=== PATIENT | female | born 1995 | race Caucasian/White ===

== ENCOUNTER 2021-10-24 11:24 | Outpatient (CLI) | payer OTHER, SELFPAY ==
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
== END 2021-10-24 11:25 | disposition home or self-care (01) ==
LOC: CHSIMG 11:28
PROVIDERS: PCP Family Medicine; Visit Provider Family Medicine
DX: M79.672 Pain in left foot (principal)
CPT/HCPCS: 73630

== ENCOUNTER 2022-03-11 19:09 | Emergency (ER) | payer OTHER, SELFPAY ==
--- NOTE | 2022-03-11 19:35 | ED.GENADULT ---
HPI - General Adult General Chief complaint: Unspecified Stated complaint: hands are turning blue Time Seen by Provider: 03/11/22 19:14 Source: patient and family Mode of arrival: ambulatory History of Present Illness HPI narrative: Phys a 26-year-old female that has a distal fingertips and hands that are cyanotic and blue was taking a bath earlier today and had her hands and water and while outdoors fingers would turn cyanotic and blue has good radial pulse with no shortness of breath no fever or chills no nausea vomiting no abdominal pain the only medical history is ADD that she takes Adderall for. There was no known injury has good range of motion all her extremities with no numbness or tingling. Onset (ago): day(s) Location: upper extremity ( Blue hands cold with no pain) Radiation: non-radiation Severity: mild Related Data Home Medications Medication Instructions Recorded Confirmed albuterol sulfate 90 mcg/actuation See Rx Instructions .Route 03/11/22 03/11/22 aerosol inhaler .COMPLEX PRN Shortness Of Breath budesonide-formoterol HFA 160 See Rx Instructions .Route 03/11/22 03/11/22 mcg-4.5 mcg/actuation aerosol .COMPLEX PRN Shortness Of Breath inhaler (Symbicort) dextroamphetamine-amphetamine 5 mg 5 mg PO DAILY 03/11/22 03/11/22 tablet fluticasone propionate 50 1 spray intranasal DAILY PRN Dry 03/11/22 03/11/22 mcg/actuation nasal Nasal Passages spray,suspension Allergies Allergy/AdvReac Type Severity Reaction Status Date / Time oseltamivir [From Tamiflu] Allergy Hives Verified 03/11/22 19:40 Review of Systems Review of Systems: All systems reviewed & are unremarkable except as noted in HPI and below Eyes: Eyes: Reports as per HPI ENT: Reports system reviewed and no additional complaints, except as documented PMFSH Past Medical History Medical History ADD (attention deficit disorder) Exam Const: General: cooperative, healthy appearing and comfortable HENMT: Head: normal to inspection Ears: hearing grossly normal bilaterally Mouth: Yes Normal oral and palatal mucosa present, Yes lip normal and Yes tongue normal Eyes: General: appearance normal, both eyes and all related structures Visual Street: normal visual street by confrontation Alignment and Position: alignment normal Neck: Neck: normal visual inspection, full ROM, no lymphadenopathy and no meningeal signs Chest: Chest palpation & inspection: normal inspection of the chest and normal palpation of entire chest wall Resp: Effort & Inspection: normal respiratory effort Auscultation: clear to auscultation bilaterally Cardio: Jugular venous distension: no JVD Palpation: normal PMI Rate: regular rate Rhythm: regular rhythm GI: Inspection: normal to inspection Skin: Other: peripheral cyanosis with blue fingertips and palms Neuro: General: oriented to person, oriented to place and oriented to time Extrem: General: normal to inspection and full ROM Right lower extremity: normal capillary refill and cyanosis Psych: Appearance: grossly normal and well kempt Mental Status: mental status grossly normal Course Course Emergency Course: patient received a dose of amlodipine 5mg to help with some vasodilation. The patient has been having blue hands a cold to touch but has minimal pain and discomfort. Critical Care Time Critical Care Time Critical Care Time: No Discharge Plan Discharge Clinical Impression: Raynaud phenomenon Qualifiers: Raynaud?s-associated gangrene presence: without gangrene Qualified Code(s): I73.00 - Raynaud's syndrome without gangrene Patient Disposition: Home, Self-Care Condition: Stable Instructions: Antibiotic Form, Raynaud Disease (ED) Additional Instructions: advised take medicine as prescribed and follow-up with primary care physician within 1 week for further evaluation and treatment. Prescriptions: New amlodipine 2.5
[2022-03-11] MEDS: amLODIPine BESYLATE 5 MG TABLET PO (19:46)
[2022-03-11 19:49] VITALS: PULSE 78; RESP 18; TEMP 36.3; O2SAT 100
[2022-03-11 20:31] VITALS: BP 114/62; PULSE 76
[2022-03-11 20:49] VITALS: BP 114/62; PULSE 76; RESP 18; TEMP 35.9; O2SAT 100
== END 2022-03-11 20:40 | disposition home or self-care (01) ==
PROVIDERS: Emergency Provider Emergency Medicine; PCP Family Medicine
DX: I73.00 Raynaud's syndrome without gangrene (principal)
CPT/HCPCS: 99283; A9270

== ENCOUNTER 2023-11-26 13:46 | Outpatient (CLI) | payer OTHER, SELFPAY ==
[2023-11-26 14:00] VITALS: BP 112/59; PULSE 96; RESP 18; TEMP 36.2; O2SAT 100; BMI 25.0
[2023-11-26] MEDS: IRON SUCROSE COMPLEX 300 MG in SODIUM CHLORIDE 0.9% IV 250 ML 125 MG IVPB (14:05)
[2023-11-26 16:10] VITALS: BP 91/68; PULSE 62; RESP 16; TEMP 36.5; O2SAT 100
--- NOTE | 2023-11-26 16:39 | PC.NURSE ---
Patient offered no c/o. Denies weakness after infusion. IV line d/c'd intact and pressure applied for 2 minutes. Dressing applied to site and site care instructions given. Patient states understanding. Able to ambulate with significant other to car.
== END 2023-11-26 13:47 | disposition home or self-care (01) ==
PROVIDERS: PCP Family Medicine; Visit Provider Internal Medicine Hematology & Oncology
DX: E61.1 Iron deficiency (principal)
CPT/HCPCS: 96365; 96366; J1756; J7050

== ENCOUNTER 2023-12-03 13:55 | Outpatient (CLI) | payer OTHER, SELFPAY ==
--- NOTE | 2023-12-03 14:20 | PC.NURSE ---
Patient here for venofer infusion. Tolerated IV start fair. Resting in recliner, significant other in room. Call light provided.
[2023-12-03 14:30] VITALS: BP 105/57; PULSE 67; RESP 16; TEMP 36.6; O2SAT 100; BMI 25.0
[2023-12-03] MEDS: IRON SUCROSE COMPLEX 300 MG in SODIUM CHLORIDE 0.9% IV 250 ML 125 MG IVPB (14:32)
--- NOTE | 2023-12-03 16:55 | PC.NURSE ---
Patient's IV infusion completed. Patient tolerated well. IV access discontinued, Cath intact, no redness or swelling to site observed. Pressure applied to site and pressure dressing placed. Patient denied pain. Able to ambulate to vehicle with significant other.
== END 2023-12-03 13:56 | disposition home or self-care (01) ==
PROVIDERS: PCP Physician Assistant; Visit Provider Internal Medicine Hematology & Oncology
DX: E61.1 Iron deficiency (principal)
CPT/HCPCS: 96365; 96366; J1756; J7050

== ENCOUNTER 2023-12-10 13:52 | Outpatient (CLI) | payer OTHER, SELFPAY ==
--- NOTE | 2023-12-10 14:05 | PC.NURSE ---
Here for OP venofer infusion, given call light
[2023-12-10 14:10] VITALS: BP 114/69; PULSE 82; RESP 18; TEMP 36.1; O2SAT 98
[2023-12-10] MEDS: IRON SUCROSE COMPLEX 300 MG in SODIUM CHLORIDE 0.9% IV 250 ML 125 MG IVPB (14:11)
[2023-12-10 14:22] VITALS: BMI 25.0
--- NOTE | 2023-12-10 14:24 | PC.NURSE ---
Warm blanket given, tolerating infusion, site clear
[2023-12-10 16:27] VITALS: BP 113/73; PULSE 80; RESP 16; TEMP 36.2; O2SAT 99
--- NOTE | 2023-12-10 16:29 | PC.NURSE ---
Patient's IV infusion completed. IV D/C'd without difficulty. Pressure applied to site then pressure dressing applied. Patient instructed on site care. Patient ambulated to elevator and then to her car.
== END 2023-12-10 13:53 | disposition home or self-care (01) ==
LOC: CHSTREATRM 13:56
PROVIDERS: PCP Physician Assistant; Visit Provider Internal Medicine Hematology & Oncology
DX: E61.1 Iron deficiency (principal)
CPT/HCPCS: 96365; 96366; J1756; J7050